=== PATIENT | male | born 1995 | race Caucasian/White ===

== ENCOUNTER 2024-11-28 21:34 | Emergency (ER) | payer OTHER, SELFPAY ==
[2024-11-28 21:36] VITALS: BP 145/85
--- NOTE | 2024-11-28 23:11 | ED.GENMED ---
History of Present Illness
General
Chief Complaint: Musculo-Skeletal Complaint
Source: patient
Exam Limitations: none
Time Seen by Provider: 11/28/24 23:04
History of Present Illness
History of Present Illness:
See MDM
Past History
Past History
ED Past Medical History: Cancer (Testicular )
ED Past Surgical History: None
Social History
Tobacco: Non-smoker
Alcohol: None
Phy Exam
Physical Exam
Physical Exam:
See MDM
Course
Orders/Labs/Results
Orders:
Orders
11/28/24 21:40
Shoulder, Right 2 Views [CR Shoulder - Right Min 2 View] Urgent
Comment:
Reason For Exam: pain
11/28/24 23:11
Cyclobenzaprine HCl [Flexeril] 10 mg PO NOW STA
Ibuprofen [Motrin] 600 mg PO NOW STA
Vital Signs
Initial and Last Documented VS:
Initial Vital Signs
Temp Pulse Resp BP Pulse Ox
98.3 F 81 16 145/85 99
11/28/24 21:36 11/28/24 21:36 11/28/24 21:36 11/28/24 21:36 11/28/24 21:36
Last Documented Vital Signs
Temp Pulse Resp BP Pulse Ox
98.3 F 81 16 145/85 99
11/28/24 21:36 11/28/24 21:36 11/28/24 21:36 11/28/24 21:36 11/28/24 21:36
MDM/Problems Addressed
Differential Diagnosis Includes:
HPI and MDM Narrative:
29-year-old male presenting for evaluation of right shoulder and neck pain. He noted the symptoms while he was playing golf earlier today. He already had a chiropractor appointment set up so he saw the chiropractor afterwards which did not seem to
help. He took a warm shower and the neck spasm got worse. Patient does acknowledge that he was mostly concerned he could have a blood clot. He had a blood clot in his right arm but this was related to a PICC line. On exam, he has no tenderness
to deep venous palpation. Symptoms are likely related to rotator cuff strain. He does have spasm in his right neck but no tenderness to palpation of carotid. He is otherwise well-appearing nontoxic. We discussed NSAIDs and muscle relaxants and
return precautions
Physical exam
General: Well appearing and non-toxic
HEENT: protecting airway
Neck: Trapezius and sternocleidomastoid. No carotid tenderness
mild spasm to rightce of cyanosis
Resp: No accessory muscle use
Abd: Non-distended
Extremities: No deformities. Discomfort with right arm internal/external rotation. Mild discomfort with abduction. Distal extremity otherwise neurovascularly intact
Neuro: alert
Psych: Normal affect
Skin: Intact
Problems Addressed including Acute and Chronic Conditions affecting care:
1. Rotator cuff strain
Acuity: acute
Prognosis: stable
Details: Discussed NSAID and muscle relaxants.
Differential Diagnosis (but not limited to): Rotator cuff strain, neck spasm
Testing considered: Right arm DVT rule out but there is no tenderness to deep venous palpation.
Drug therapy (if applicable): OTC meds, please see d/c instruction regarding Rx drugs
Amount and/or Complexity of Data Reviewed
Clinical info obtained from: Patient
External data reviewed: N/A
Labs I independently reviewed (but not limited to): N/A
Radiology: X-ray independently reviewed: Right shoulder x-ray within normal limits
Pulse Ox: not hypoxic
EKG independently reviewed: N/A
Medical Office Clerk: N/A
Critical Care: N/A
Risk of Complication:
Social Determinants of health: Good social support
Discussed with other providers: N/A
Escalation of Care includes Admit/Obs: After being observed in the Emergency Department, pt stable for discharge.
Occasional wrong word or 'sound a like' substitutions may have occurred due to the inherent limitations of voice recognition software. Read the chart carefully and recognize, using context, where substitutions have occurred.
*Critical Care Note
Total Time (30-74mins, 75-104mins- exclusive of procedures): Not Applicable
ED Attending Note
-
Portions of this chart may have been created with voice recognition software.� Occasional wrong word or��sound alike� substitutions may have occurred due to the inherent limitations of voice recognition software.
Discharge Plan
Departure
Patient Disposition: Home (Routine Discharge)
Date of Disposition: 11/28/24
Time of Disposition: 23:20
Patient with high blood pressure during this ER visit?: Yes
Discharge Problem:
Rotator cuff strain
Instructions: BLOOD PRESSURE
Prescriptions:
New
cyclobenzaprine 10 mg Tablet
10 mg PO TIDPRN PRN (Reason: muscle spasm) Qty: 13 0RF
Referrals:
Jewel Gregory MD [Active] -
Activity Restrictions/Additional Instructions:
Please return for any worsening symptoms.
You may return at any time if you have further concerns.
Please follow up with your doctor at the first available appointment, preferably this week.
Please make an appointment with the orthopedist if symptoms persist.
Thank you for choosing [facility].
Discharge Date and Time
Print Language: TUVALUAN
[2024-11-28] MEDS: MOTRIN 600 MG PO (23:36)
[2024-11-28] MEDS: FLEXERIL 10 MG PO (23:36)
[2024-11-28 23:39] VITALS: BP 112/68
== END 2024-11-28 23:42 | disposition home or self-care (01) ==
LOC: EMR 21:34
PROVIDERS: EMERGENCY PHYSICIAN Student in an Organized Health Care Education/Training Program; FAMILY PHYSICIAN Internal Medicine
DX: S46.011A Strain of muscle(s) and tendon(s) of the rotator cuff of right shoulder, initial encounter (principal); M54.2 Cervicalgia; X58.XXXA Exposure to other specified factors, initial encounter; Y93.53 Activity, golf
CPT/HCPCS: 99283; 73030

== ENCOUNTER 2024-12-19 18:19 | Emergency (ER) | payer OTHER, SELFPAY ==
[2024-12-19 18:38] VITALS: BP 134/90
[2024-12-19 21:43] VITALS: BP 103/64
--- NOTE | 2024-12-19 22:04 | ED.GENMED ---
History of Present Illness
General
Chief Complaint: Musculo-Skeletal Complaint
Source: patient
Exam Limitations: none
Time Seen by Provider: 12/19/24 19:52
Nursing documentation reviewed up to this point in time: agreed with
History of Present Illness
History of Present Illness:
29-year-old male presenting to the emergency department today with concerns of right shoulder pain has been ongoing for a few weeks. Seen orthopedic doctor was given a steroid with slight improvement. Has been doing some rehab exercises at home.
There is a small mount of swelling to the right arm few days. Was concerned about a blood clot. Did have previous testicular cancer previously had a blood clot in his arm in the past. Denies any chest pain shortness of breath
Past History
Past History
ED Past Medical History: Cancer (Testicular )
ED Past Surgical History: None
Social History
Tobacco: Non-smoker
Alcohol: None
Review of Systems
Review of Systems
Allergies reviewed?: Yes
All Other Systems: ROS reviewed and negative except as documented in HPI and ROS
Phy Exam
Physical Exam
Physical Exam:
GENERAL: Alert , in no apparent distress
EYE: pupils equal and reactive
NECK: Supple, no significant adenopathy.
ENT: o/p clr, mmm.
CARDIAC: Regular rate and rhythm .
LUNGS: Clear breath sounds bilaterally, no acute respiratory distress, no wheezes/rales/rhonchi
ABDOMEN: Soft, without focal tenderness, no r/g, no cvat
NEUROLOGICAL: Alert and oriented, no focal neuro deficits
SKIN: Warm and dry, skin intact.
MUSCULOSKELETAL: Very subtle swelling to the right upper extremity but otherwise good range of motion and strength to the right upper extremity., well perfused.
PSYCH: Normal and appropriate interaction.
Course
Orders/Labs/Results
Orders:
Orders
12/19/24 18:39
Periph Venous Upr Ext Right US [US Periph Venous UPPER Ext RT] Urgent
Comment: hx of thoraic outlet syndrome
Reason For Exam: right should and upper arm pain and 'fullness'
Vital Signs
Initial and Last Documented VS:
Initial Vital Signs
Temp Pulse Resp BP Pulse Ox
98.5 F 85 18 134/90 98
12/19/24 18:38 12/19/24 18:38 12/19/24 18:38 12/19/24 18:38 12/19/24 18:38
Last Documented Vital Signs
Temp Pulse Resp BP Pulse Ox
98.5 F 71 25 103/64 99
12/19/24 18:38 12/19/24 21:43 12/19/24 21:43 12/19/24 21:43 12/19/24 21:43
MDM/Problems Addressed
MDM/Problems Addressed:
29-year-old male presenting to the emergency department today with concerns of discomfort to the right arm over the past few weeks. On arrival vital signs are normal. No chest pain or shortness of breath. Normal distal pulses normal cap refill
normal strength and range of motion of the upper extremity. Ultrasound without signs of DVT. No signs of any emergent or life-threatening etiology of symptoms. Advised for close outpatient follow-up for reassessment and further evaluation.
Return precautions given.
*Critical Care Note
Total Time (30-74mins, 75-104mins- exclusive of procedures): Not Applicable
ED Attending Note
-
Portions of this chart may have been created with voice recognition software.� Occasional wrong word or��sound alike� substitutions may have occurred due to the inherent limitations of voice recognition software.
Discharge Plan
Departure
Patient Disposition: Home (Routine Discharge)
Date of Disposition: 12/19/24
Time of Disposition: 22:04
Patient with high blood pressure during this ER visit?: No
Condition: Good
Discharge Problem:
Pain in right shoulder
Instructions: Muscle and Bone Pain (DC)
Prescriptions:
No Action
cyclobenzaprine 10 mg Tablet
10 mg PO TIDPRN PRN (Reason: muscle spasm) Qty: 13 0RF
Referrals:
Shirley Vazquez MD [Family Provider] -
Cachorro Estrada MD [Active] - Follow up in 5-7 days
Activity Restrictions/Additional Instructions:
You came to the emergency department today with concerns of ongoing discomfort to the right arm. You had an ultrasound without signs of DVT. It is important that you follow-up closely as an outpatient for further assessment and further imaging.
Return for any worsening, new or concerning symptoms.
Interventions
Interventions:
*Risk Screen - Suicide Last Done: 12/19/24 18:38
*General Assessment Last Done: 12/19/24 18:38
*Neglect/Abuse Screening Last Done: 12/19/24 18:38
*ED- Fall Risk Assessment Last Done: 12/19/24 18:38
*ED COVID-19 Vaccine History Last Done: 12/19/24 18:38
*Nursing Disposition Last Done: 12/19/24 22:09
ED-Musculoskeletal Assessment Last Done: 12/19/24 22:08
Discharge Date and Time
Discharge Date/Time: 12/19/24 22:10
Print Language: BHUTANESE
== END 2024-12-19 22:10 | disposition home or self-care (01) ==
LOC: EMR 18:19
PROVIDERS: EMERGENCY PHYSICIAN Emergency Medicine; FAMILY PHYSICIAN Internal Medicine
DX: M25.511 Pain in right shoulder (principal); R22.31 Localized swelling, mass and lump, right upper limb; Z85.47 Personal history of malignant neoplasm of testis; Z86.718 Personal history of other venous thrombosis and embolism
CPT/HCPCS: 99284; 93971

== ENCOUNTER → 2025-01-05 06:03 | Outpatient (REF) | payer OTHER, SELFPAY | LOC: EMG 06:03 | PROVIDERS: ATTENDING PHYSICIAN Internal Medicine | DX: R20.2 Paresthesia of skin (principal); R20.0 Anesthesia of skin | CPT/HCPCS: 95886; 95909 ==

== ENCOUNTER 2025-02-05 10:21 | Emergency (ER) | payer OTHER, SELFPAY ==
[2025-02-05 10:26] VITALS: BP 148/100
--- NOTE | 2025-02-05 12:29 | ED.GENMED ---
Addendum entered and electronically signed by Danuta Joe NP 02/08/25 14:09:
Pt informed of neg Lymes and Rh Factor. Will f/U with Rheumatology
Original Note:
History of Present Illness
General
Chief Complaint: Back Pain
Source: patient
Exam Limitations: none
Time Seen by Provider: 02/05/25 12:26
Nursing documentation reviewed up to this point in time: agreed with
History of Present Illness
History of Present Illness:
29-year-old male with remote history of DVT, not anticoagulated. Testicular CA w radiation and lymph node resection. Presents for neck pain, pain lower back radiating down both legs to the calves
Patient states various symptoms started in August this year. Initially his neck was hurting him and he had flulike symptoms. Short while later he had upper respiratory symptoms and tested positive for strep throat treated in September with 10 days
of amoxicillin.
In October along with his neck pain he developed pain in the right shoulder with heaviness and numbness down his arm,
He saw orthopedics and had an MRI of his neck and shoulders which he states were unremarkable. He also had an EMG which was unremarkable.
He has gone to 7 weeks of physical therapy, seeing an osteopath, went to a chiropractor all with no improvement of these migrating painful symptoms.
He states he was never tested for Lyme.
He states he has various body pains since August
He still has burning and tightness about the neck, his shoulder is better. 1 month ago he developed low back pain with burning down both posterior thighs to calves. This pain has been intermittent but severe.
This morning it was stabbing pains so bad in his lower back radiating down his legs that he could not take it anymore and came here for evaluation.
Denies fever or chills. Denies nausea or vomiting. Denies headache.
Past History
Past History
ED Past Medical History: Cancer (Testicular )
ED Past Surgical History: None
Social History
Tobacco: Non-smoker
Alcohol: None
Review of Systems
Review of Systems
Allergies reviewed?: Yes
All Other Systems: ROS reviewed and negative except as documented in HPI and ROS
Constitutional: Denies fever or fatigue
EENT: Denies sore throat
Respiratory: Denies trouble breathing
Cardiac: Denies chest pain
ABD/GI: Denies abdominal pain, nausea, vomiting or diarrhea
Musculoskeletal: Reports joint pain and back pain (low back pain radiates down back of both thighs to calves); Denies joint swelling or edema
Skin: Reports no symptoms
Neurological: Denies dizzy, headache, weakness or numbness
Phy Exam
Physical Exam
Physical Exam:
GENERAL: No acute distress. A&Ox3.
CONSTITUTIONAL: Afebrile.
EYES: clear, conjunctivae normal
ENMT: moist mucus membranes, Pharynx nl
RESPIRATORY: Regular respirations, nonlabored, lungs clear.
CARDIOVASCULAR: Regular rate and rhythm, no murmurs, no rubs.
GI: Soft, nontender, normal BS
MUSCULOSKELETAL: Moves with ease. Well perfused.
SKIN: Warm, dry, pink
PSYCH: Normal mood and affect. Well kept, interactive and appropriate
NEUROLOGIC: Awake, alert and oriented. No focal neurological deficits
Course
Orders/Labs/Results
Orders:
Orders
02/05/25 12:28
Dexamethasone [Decadron] 10 mg PO NOW STA
02/05/25 12:39
C-Reactive Protein Urgent
CPK Isoenzyme Urgent
Comment: ADD ON
Erythrocyte Sed Rate Urgent
Lyme Progressive Urgent
Rheumatoid Agglutinin Urgent
02/05/25 13:36
Add On- LAB Urgent
Comments:: specimen in the lab
Tests Added?: CPK iso
02/05/25 14:02
Lumbar Spine, 2 or 3 View [CR Lumbar Spine 2 Or 3 Views] Urgent
Comment:
Reason For Exam: pain with radiation down both legs, hx testicle ca
Vital Signs
Initial and Last Documented VS:
Initial Vital Signs
Temp Pulse Resp BP Pulse Ox
98.4 F 96 18 148/100 98
02/05/25 10:26 02/05/25 10:26 02/05/25 10:26 02/05/25 10:26 02/05/25 10:26
Last Documented Vital Signs
Temp Pulse Resp BP Pulse Ox
98.4 F 75 20 122/78 100
02/05/25 10:26 02/05/25 14:49 02/05/25 14:49 02/05/25 14:49 02/05/25 14:49
MDM/Problems Addressed
Differential Diagnosis Includes:
Lyme's, Fibromyalgia, Myofascial pain syndrome, Polymyalgia rheumatica, RA
MDM/Problems Addressed:
29-year-old male with remote history of DVT, not anticoagulated. Testicular CA w radiation and lymph node resection. Presents for neck pain, pain lower back radiating down both legs to the calves
Patient states various symptoms started in August this year. Initially his neck was hurting him and he had flulike symptoms. Short while later he had upper respiratory symptoms and tested positive for strep throat treated in September with 10 days
of amoxicillin.
In October along with his neck pain he developed pain in the right shoulder with heaviness and numbness down his arm,
He saw orthopedics and had an MRI of his neck and shoulders which he states were unremarkable. He also had an EMG which was unremarkable.
He has gone to 7 weeks of physical therapy, seeing an osteopath, went to a chiropractor all with no improvement of these migrating painful symptoms.
He states he was never tested for Lyme.
He states he has various body pains since August
He still has burning and tightness about the neck, his shoulder is better. 1 month ago he developed low back pain with burning down both posterior thighs to calves. This pain has been intermittent but severe.
This morning it was stabbing pains so bad in his lower back radiating down his legs that he could not take it anymore and came here for evaluation.
Denies fever or chills. Denies nausea or vomiting. Denies headache.
I reviewed his lab work from 01/21 on his phone: CBC, CMP were completely normal. No need to repeat
Will check Lyme titer, inflammatory markers, CPK
1:30 PM:
CRP, CPK, ESR all normal
Patient requesting an x-ray of his lower back
2:30 PM:
Lumbar spine x-ray initially read by this examiner, no acute abnormality noted.
Plan: Doxycycline until Lyme titer is back, prednisone taper, follow-up with PCP next week for update
Referral to tool machine set up operator given if needed
Patient is comfortable with this plan.
Patient ambulated out with normal gait at discharge.
Lyme and rheumatoid results pending
*Critical Care Note
Total Time (30-74mins, 75-104mins- exclusive of procedures): Not Applicable
ED Attending Note
-
Portions of this chart may have been created with voice recognition software.� Occasional wrong word or��sound alike� substitutions may have occurred due to the inherent limitations of voice recognition software.
Discharge Plan
Departure
Patient Disposition: Home (Routine Discharge)
Date of Disposition: 02/05/25
Time of Disposition: 14:34
Patient with high blood pressure during this ER visit?: No
Condition: Good
Discharge Problem:
Joint pain
Instructions: Low Back Pain (DC), Sciatica (DC), Muscle, joint, and bone pain - Discharge instructions
Prescriptions:
New
doxycycline hyclate 100 mg capsule
100 mg PO BID Qty: 20 0RF
prednisone 10 mg Tablet
See Rx Instructions .ROUTE .COMPLEX Qty: 30 0RF
Rx Instructions:
Take By Mouth:
40 mg daily x3 days, 30 mg daily x3 days,
20 mg daily x3 days, 10 mg daily x3 days.
No Action
cyclobenzaprine 10 mg Tablet
10 mg PO TIDPRN PRN (Reason: muscle spasm) Qty: 13 0RF
Referrals:
Shirley Vazquez MD [Family Provider, Internal Medicine] - Follow up in 5-7 days
Wang Mario DO [Active, Rheumatology] - Next open appointment
Activity Restrictions/Additional Instructions:
As we discussed, your workup here today shows nothing worrisome.
Your lumbar spine x-ray is normal
If your back and leg pain are caused by sciatica, the steroids should help.
Your Lyme titer and rheumatoid test are still pending. Call me Saturday between the hours of 9-4 for these results.
I will start you on Doxycycline pending Lyme results. I sent a prescription to your pharmacy.
I also sent prescription for a steroid taper
Follow-up with your primary doctor next week for an update on how you are feeling
Follow up with the Quality Controller if you are not improved in 2 weeks.
Interventions
Interventions:
*Risk Screen - Suicide Last Done: 02/05/25 10:26
*General Assessment Last Done: 02/05/25 10:26
*Neglect/Abuse Screening Last Done: 02/05/25 10:26
*Nursing Disposition Last Done: 02/05/25 14:50
ED-Musculoskeletal Assessment Last Done: 02/05/25 12:11
Discharge Date and Time
Discharge Date/Time: 02/05/25 14:50
Print Language: TUNISIAN
[2025-02-05] MEDS: DECADRON 10 MG PO (12:54)
[2025-02-05 13:03] LABS: Erythrocyte Sed Rate 2 mm/hour (0-20)
[2025-02-05 13:23] LABS: C-Reactive Protein < 5.00 mg/L (0.0-10.00)
[2025-02-05 14:49] VITALS: BP 122/78
[2025-02-05 16:32] LABS: Total CK 71 U/L (55-170)
[2025-02-08 13:45] LABS: Lyme Antibody Screen, EIA Negative (Negative); Rheumatoid Agglutinin Less Than 10 IU (<10 IU)
== END 2025-02-05 14:50 | disposition home or self-care (01) ==
LOC: EMR 10:21
PROVIDERS: Registered Nurse; EMERGENCY PHYSICIAN Emergency Medicine; FAMILY PHYSICIAN Internal Medicine
DX: M25.50 Pain in unspecified joint (principal); Z85.47 Personal history of malignant neoplasm of testis; Z86.718 Personal history of other venous thrombosis and embolism; Z92.3 Personal history of irradiation
CPT/HCPCS: 99283; 72100; 82550; 85652; 86140; 86430; 86618

== ENCOUNTER 2025-06-15 09:38 | Emergency (ER) | payer OTHER, SELFPAY ==
[2025-06-15 09:43] VITALS: BP 136/86; BMI 25.7
--- NOTE | 2025-06-15 11:27 | ED.GENMED ---
History of Present Illness
<Sudha Smiley MD, Resident - Last Filed: 06/15/25 14:52>
General
Chief Complaint: Fall
Source: patient
Time Seen by Provider: 06/15/25 10:57
History of Present Illness
History of Present Illness:
29 y/o male with PMHx testicular cancer s/p resection and treatment presents to the ER for a fall. On saturday night, he had 5 beers and 2 shots of hard liqueur and could not remember anything else the rest of the night. His friends told him he fell
on some mulch. They do not think he hit his head but he is not 100% sure. On saturday, he felt a bit hung over and mid-day his neck and head started to hurt. He thought he may feel better in the morning, but the pain persisted so he decided to come
in. He primarily feels the pain in his anterior neck muscles, sides of his neck radiating into the back of his head. He rates the pain a 7/10. Ibuprofen helps, certain neck positions make it worse. He denies any confusion, numbness, weakness,
tingling, blurry vision, N/V. He denies any fever, chills.
Past History
<Sudha Smiley MD, Resident - Last Filed: 06/15/25 14:52>
Past History
ED Past Medical History: Cancer (Testicular )
ED Past Surgical History: None
Social History
Tobacco: Non-smoker
Alcohol: Other (Nothing for the last 5 years until last saturday. )
Drug: None
Family History
Family History: Other
Review of Systems
<Sudha Smiley MD, Resident - Last Filed: 06/15/25 14:52>
Review of Systems
Constitutional: Reports no symptoms
EENT: Reports no symptoms
Respiratory: Reports no symptoms
Cardiac: Reports no symptoms
ABD/GI: Reports no symptoms
: Reports no symptoms
Musculoskeletal: Reports muscle stiffness, neck pain and other (Pain in back of head )
Neurological: Reports no symptoms
Hematologic/Lymphatic: Reports no symptoms
Phy Exam
<Sudha Smiley MD, Resident - Last Filed: 06/15/25 14:52>
Physical Exam
Physical Exam:
General: Well appearing, non-toxic
Head: Slight swelling in back on head, no bruising or lacerations
Neck: SCM and top of bilateral trapezius muscle tenderness with palpation. No cervical spine tenderness midlines, no point tenderness, ROM intact.
Cardiac: Regular S1, S2, no murmurs
Respiratory: Clear breath sounds bilaterally
Abdomen: Soft, non-tender, non-distended, normal bowel sounds x4
Extremities: No edema, no calf tenderness, erythema
Neurological: CN II-XII intact, bilateral upper and lower extremties strength 5/5, sensation intact bilaterally
Scores
<Sudha Smiley MD, Resident - Last Filed: 06/15/25 14:52>
PECARN >2 YEARS
GCS <15: No
Signs basilar skull fracture: No
LOC: No
Patient vomiting: No
Severe headache: No
Severe mechanism: No
If any criteria positive, consider head CT: No
<Martin Alcantara MD - Last Filed: 06/15/25 16:30>
PECARN >2 YEARS
If any criteria positive, consider head CT: No
Course
<Sudha Smiley MD, Resident - Last Filed: 06/15/25 14:52>
Orders/Labs/Results
Orders:
Orders
06/15/25 09:52
Cervical Spine 4 or 5 Vw [CR Cervical Spine 4 Or 5 Vw] Urgent
Comment:
Reason For Exam: injury and pain
Vital Signs
Initial and Last Documented VS:
Initial Vital Signs
Temp Pulse Resp BP Pulse Ox
98.1 F 77 18 136/86 99
06/15/25 09:43 06/15/25 09:43 06/15/25 09:43 06/15/25 09:43 06/15/25 09:43
Last Documented Vital Signs
Temp Pulse Resp BP Pulse Ox
98.1 F 77 18 136/86 99
06/15/25 09:43 06/15/25 09:43 06/15/25 09:43 06/15/25 09:43 06/15/25 11:33
<Martin Alcantara MD - Last Filed: 06/15/25 16:30>
Orders/Labs/Results
Orders:
Orders
06/15/25 09:52
Cervical Spine 4 or 5 Vw [CR Cervical Spine 4 Or 5 Vw] Urgent
Comment:
Reason For Exam: injury and pain
Vital Signs
Initial and Last Documented VS:
Initial Vital Signs
Temp Pulse Resp BP Pulse Ox
98.1 F 77 18 136/86 99
06/15/25 09:43 06/15/25 09:43 06/15/25 09:43 06/15/25 09:43 06/15/25 09:43
Last Documented Vital Signs
Temp Pulse Resp BP Pulse Ox
98.1 F 77 18 136/86 99
06/15/25 09:43 06/15/25 09:43 06/15/25 09:43 06/15/25 09:43 06/15/25 11:33
<Sudha Smiley MD, Resident - Last Filed: 06/15/25 14:52>
MDM/Problems Addressed
Differential Diagnosis Includes:
Muscle strain, cervical neck fracture, concussion, bruising, ligamental tear, brain bleed, hangover
MDM/Problems Addressed:
Cervical spine x-ray unremarkable for acute fracture. Physical exam consistent with muscle strain. Recommend f/u with PCP if pain continues at same intensity or worsens with repeat imaging and hairline fracture may possibly present later. Rest, Ice
and continue ibuprofen for pain.
<Sudha Smiley MD, Resident - Last Filed: 06/15/25 14:52>
*Pulse Oximetry
SaO2: 99
Oxygen Mode of Delivery: Room air
Patient hypoxic: no
*Critical Care Note
Total Time (30-74mins, 75-104mins- exclusive of procedures): Not Applicable
Data Reviewed
Review of Other/Old Records Reveals: Radiology Studies (Lumbar x-ray 01/2025 minimal changes of degenerative disc disase from T10-11,12. No signs of acute fracture. )
Source: patient
ED Attending Note
<Sudha Smiley MD, Resident - Last Filed: 06/15/25 14:52>
-
Portions of this chart may have been created with voice recognition software.� Occasional wrong word or��sound alike� substitutions may have occurred due to the inherent limitations of voice recognition software.
<Martin Alcantara MD - Last Filed: 06/15/25 16:30>
ED Attending Note
Patient seen and examined by attending physician: Yes
ED Attending Note:
Pt presents to ED secondary to worsening left sided neck pain x 24hrs. Pt reports having had accidental fall onto mulch surface, one day prior to onset of neck, while drinking sig. amount of alcohol intake, which he does not do normally. On the day
of fall and following morning, pt did not experience any pain. However towards afternoon yesterday, he started to experience pain, which was partially improved with motrin at home. Denies headache. Denies dizziness. Denies nausea/vomiting. Denies
loss of sensation/weakness. Denies difficulty with ambulation.
General: well nourished male, in no acute distress. afebrile
Heent: nc/at. eomi
Neck: normal range of motion. no midline tenderness.
Abd: soft and nontender.
Ext: no edema.
Neuro: aao x 3. no focal neurological deficit. normal gait. normal speech.
Psych: pleasant and cooperative.
Skin: warm to touch
Cervical x-ray: no acute findings.
History/exam consistent with likely cervical strain. Othewise patient is afebrile, hemodynamically stable and neurologically intact at time of discharge. Advised tylenol/motrin for pain relief, along with PCP f.u as outpatient, including potential
MRI spine as outpatient, if symptoms persist.
Discharge Plan
Departure
Patient Disposition: Home (Routine Discharge)
Date of Disposition: 06/15/25
Time of Disposition: 12:01
Patient with high blood pressure during this ER visit?: Yes
Condition: Good
Discharge Problem:
Cervical strain
Instructions: Head Injury in Adults (DC), Cervical Sprain ED
Prescriptions:
No Action
No Current Medications
0
Referrals:
Shirley Vazquez MD [Family Provider, Internal Medicine]
Stand Alone Forms: Return to Work
Activity Restrictions/Additional Instructions:
As discussed, please follow-up with your primary care physician for reevaluation, including potential MRI neck as outpatient, if symptoms persist. Please consider return to ED with worsening symptoms, i.e. fever/worsening pain/weakness/numbness.
Interventions
Interventions:
*Risk Screen - Suicide Last Done: 06/15/25 09:43
*General Assessment Last Done: 06/15/25 09:43
*Neglect/Abuse Screening Last Done: 06/15/25 09:43
*ED- Fall Risk Assessment Last Done: 06/15/25 09:43
*ED COVID-19 Vaccine History Last Done: 06/15/25 11:27
*ED Influenza Vaccine History Last Done: 06/15/25 09:43
*Nursing Disposition Last Done: 06/15/25 12:39
ED-Musculoskeletal Assessment Last Done: 06/15/25 11:26
ED- Neurological Assessment Last Done: 06/15/25 11:26
ED-Skin Assessment Last Done: 06/15/25 11:26
Discharge Date and Time
Discharge Date/Time: 06/15/25 12:20
Print Language: AUSTRIAN
== END 2025-06-15 12:20 | disposition home or self-care (01) ==
LOC: EMR 09:38
PROVIDERS: EMERGENCY PHYSICIAN Emergency Medicine; FAMILY PHYSICIAN Internal Medicine
DX: S16.1XXA Strain of muscle, fascia and tendon at neck level, initial encounter (principal); W19.XXXA Unspecified fall, initial encounter; M51.34 Other intervertebral disc degeneration, thoracic region; Z85.47 Personal history of malignant neoplasm of testis
CPT/HCPCS: 99283; 72050